=== PATIENT | male | born 1955 | race Caucasian/White ===

== ENCOUNTER 2021-09-21 09:31 | Emergency (ER) | payer BC, MEDICARE ==
[2021-09-21 11:06] VITALS: BP 199/84; PULSE 85
[2021-09-21] MEDS: Ketorolac 30 MG/ML SDV IM ONE (11:14)
[2021-09-21] MEDS: Morphine 2 MG/ML SYRINGE IVPUSH ONE (11:15)
[2021-09-21] MEDS: Morphine 2 MG/ML SYRINGE ONE (11:43)
[2021-09-21] MEDS: Ketorolac 30 MG/ML SDV ONE (11:44)
== END 2021-09-21 12:10 | disposition home or self-care (01) ==
LOC: LB.ED 09:31
DX: S82.851A Displaced trimalleolar fracture of right lower leg, initial encounter for closed fracture (principal); Z87.891 Personal history of nicotine dependence; W00.9XXA Unspecified fall due to ice and snow, initial encounter
CPT/HCPCS: 73610-RT; 96372; 96374; 99283-25; J1885; J2270